=== PATIENT | female | born 1995 | race African-American/Black ===

== ENCOUNTER 2018-10-25 11:58 | Emergency (ER) | payer OTHER ==
[~2018-10-25] VITALS: Ht 165.1 cm; Wt 110.0 kg
[2018-10-25] MEDS ORDERED: SODIUM CHLORIDE 0.9% 1,000 ML IV ONE (12:23)
[2018-10-25] MEDS ORDERED: ONDANSETRON HCL 4MG/2ML INJ IV ONE (12:30)
[2018-10-25] MEDS ORDERED: ACTIVATED CHARCOAL 50 G/240 ML TUBE PO ONE (12:30)
[2018-10-25 13:36] LABS: BASOPHILS % 0.5 % (0.0-2.0); EOSINOPHILS % 0.5 % (0.0-5.0); HEMOGLOBIN. 14.5 g/dL (12.0-16.0); LYMPHOCYTES % 22.1 % (20.0-50.0); MEAN CORPUSCULAR HEMOGLOBIN 29.5 pg (28.0-32.0); MEAN CORPUSCULAR VOLUME 87.4 fL (81.0-99.0); MEAN PLATELET VOLUME 8.8 fl (7.4-10.4); NEUTROPHILS % 71.9 % (40.0-76.0); PLATELET 345 x1000/uL (130-400); RED BLOOD CELL COUNT 4.92 mill/uL (4.2-5.4); RED CELL DISTRIBUTION WIDTH 14.9 % (11.6-14.6)
[2018-10-25 13:42] LABS: CHLORIDE 107 mEq/L (98-107)
[2018-10-25 13:44] LABS: PARTIAL THROMBOPLASTIN TIME 28.1 sec (23.4-31.0); PROTHROMBIN TIME 10.6 sec (9.6-11.0)
[2018-10-25 13:47] LABS: ETHANOL BLOOD < 10 mg/dL
[2018-10-25 14:08] LABS: *AMPHETAMINES SCREEN URINE NEGATIVE (NEGATIVE); *BARBITURATES SCREEN URINE NEGATIVE (NEGATIVE); *COCAINE SCREEN URINE NEGATIVE (NEGATIVE)
[2018-10-25 14:09] LABS: METHADONE URINE SCREEN NEGATIVE (NEGATIVE); OPIATES URINE SCREEN NEGATIVE (NEGATIVE); PHENCYCLIDINE URINE SCREEN NEGATIVE (NEGATIVE)
[2018-10-25 14:12] LABS: *BENZODIAZEPINES SCREEN URINE PRESUMTIVE POSITIVE (NEGATIVE); CANNABINOID URINE SCREEN PRESUMTIVE POSITIVE (NEGATIVE)
[2018-10-25 16:43] LABS: CHLORIDE 110 mEq/L (98-107)
[2018-10-26 10:00] VITALS: BP 158/64
== END 2018-10-26 10:14 | disposition home or self-care (01) ==
LOC: ER 11:58
DX: T40.4X2A Poisoning by other synthetic narcotics, intentional self-harm, initial encounter (principal); T40.2X2A Poisoning by other opioids, intentional self-harm, initial encounter; J45.909 Unspecified asthma, uncomplicated; Z88.0 Allergy status to penicillin; Z88.2 Allergy status to sulfonamides; Y92.89 Other specified places as the place of occurrence of the external cause
CPT/HCPCS: 36415; 80053; 80305; 80307; 80320; 80329; 81025; 85025; 85610; 85730; 93005; 96374; 99284; J2405; J7030; Z7610; G0480

== ENCOUNTER 2019-06-17 09:47 | Emergency (ER) | payer MEDICAID, OTHER ==
[~2019-06-17] VITALS: Ht 154.9 cm; Wt 91.0 kg
[2019-06-17 10:40] VITALS: BP 115/77
[2019-06-17] MEDS ORDERED: ALBUTEROL (0.083%) 2.5MG/3ML NEB HHN STA (11:43)
[2019-06-17] MEDS ORDERED: IPRATROPIUM BROMIDE (0.02%) 0.5MG/2.5ML NEB HHN STA (11:43)
[2019-06-17] MEDS ORDERED: ACETAMINOPHEN 325MG TABLET PO ONE (12:30)
== END 2019-06-17 14:42 | disposition home or self-care (01) ==
LOC: ER 09:47
DX: J20.9 Acute bronchitis, unspecified (principal); J06.9 Acute upper respiratory infection, unspecified; J45.909 Unspecified asthma, uncomplicated; Z88.0 Allergy status to penicillin; Z88.2 Allergy status to sulfonamides
CPT/HCPCS: 94640; 99283; J7611; Z7610